=== PATIENT | female | born 1970 | race Two or more races ===

== ENCOUNTER 2021-11-17 06:53 | Emergency (ER) | payer OTHER ==
[~2021-11-17] VITALS: Ht 152.4 cm; Wt 56.7 kg
[2021-11-17] MEDS ORDERED: KETO10TA2 PO (07:24)
[2021-11-17] MEDS ORDERED: CLEOCIN HCL300 MG PO (07:24)
== END 2021-11-17 09:27 | disposition home or self-care (01) ==
LOC: ER 06:53
DX: B26.89 Other mumps complications (principal)